=== PATIENT | male | born 1940 | race Caucasian/White ===

== ENCOUNTER 2019-11-25 14:09 | Emergency (ER) | payer MEDICARE, SELFPAY ==
[2019-11-25 14:11] VITALS: BP 183/112; PULSE 74; RESP 18; TEMP 36.8; O2SAT 98; BMI 25.6
--- NOTE | 2019-11-25 14:13 | DI.CT.S_ITS ---
PROCEDURE: CT HEAD/BRAIN WO CON INDICATIONS: mechanical fall, swelling to RT forehead, on Eloquis TECHNIQUE: Noncontrast 4.5 mm thick angled axial sections acquired from the foramen magnum to the vertex, with coronal and sagittal reformats. For radiation dose reduction, the following was used: automated exposure control, adjustment of mA and/or kV according to patient size. COMPARISON: [facility], CT, CT CERVICAL SPINE WO CON, 11/25/2019, 14:17. FINDINGS: Image quality: Excellent. CSF spaces: Basal cisterns are patent. No extra-axial fluid collections. The ventricles are symmetric in size and shape. Brain: No intracranial bleeds or masses. There is cerebral volume loss for age, with resultant ventricular and sulcal prominence. There are periventricular and deep white matter chronic small vessel ischemic changes. There is intracranial internal carotid artery atherosclerosis. Skull and face: There is a scalp hematoma seen involving the right forehead, as on series 2 image 13. No underlying calvarial fracture can be seen. Calvarium and visualized facial bones appear intact, without suspicious lesions. Postoperative change of both globes can be seen. Sinuses: Visualized sinuses and mastoids are clear. IMPRESSION: Right forehead scalp hematoma. No underlying calvarial fracture is seen. No acute intracranial hemorrhage is seen. No acute intracranial process is seen. Dictated by: Aric Edmonds M.D. on 11/25/2019 at 13:40 Approved by: Aric Edmonds M.D. on 11/25/2019 at 13:42
--- NOTE | 2019-11-25 14:13 | DI.CT.S_ITS ---
PROCEDURE: CT CERVICAL SPINE WO CON INDICATIONS: s/p fall on Eliquis TECHNIQUE: Noncontrast 3 mm thick sections acquired from the skull base to the T4 level. Sagittal and coronal reformats were then constructed. For radiation dose reduction, the following was used: automated exposure control, adjustment of mA and/or kV according to patient size. COMPARISON: [facility], CT, CT HEAD/BRAIN WO CON, 11/25/2019, 14:17. FINDINGS: Image quality: Excellent. Bones: No fractures or dislocations. Visualized superior ribs are intact. Prominent degenerative changes are seen, with moderate to severe disc space narrowing at C4-C5, C5-C6, and C6-C7, and C7-T1. Posteriorly directed endplate osteophytes are seen, which are most prominent at C4-C4, yet also seen at C6-C7. Mild retrolisthesis is seen at C4-C5. Bridging anterior osteophytes are seen C4 through T1. Soft tissues: Prevertebral soft tissues are normal in thickness. No paravertebral hematomas. No apical pneumothoraces. Atherosclerotic calcification is noted. IMPRESSION: Negative for acute fracture. Prominent degenerative changes are seen. Dictated by: Aric Edmonds M.D. on 11/25/2019 at 13:42 Approved by: Aric Edmonds M.D. on 11/25/2019 at 13:43
--- NOTE | 2019-11-25 14:17 | DI.RAD.S_ITS ---
PROCEDURE: XR HAND RT MIN 3V INDICATIONS: right radial aspect hand pain TECHNIQUE: 3 views of the hand(s) acquired. COMPARISON: None. FINDINGS: Bones: No fracture. Diffuse osteopenia. Widespread osteoarthritis, with severe joint space narrowing. There is going appearance to the PIP joint of the ring finger and possibly the DIP joint of the index finger suggestive of erosive osteoarthritis. Severe 3rd MCP joint degeneration, with subluxed appearance. There is also diffuse carpal and 1st CMC osteoarthritis Scattered vascular calcifications. IMPRESSION: Severe diffuse right hand joint degeneration, with appearance that raises the possibility of erosive osteoarthritis as discussed above. Dictated by: Jaylen Strong M.D. on 11/25/2019 at 14:46 Approved by: Jaylen Strong M.D. on 11/25/2019 at 14:48
[2019-11-25 14:22] LABS: Add Manual Diff / Slide Review NO; Basophils Absolute Auto 100 /uL (0-100); Basophils Percent Auto 1.1 % (0-2); Eosinophils Absolute Auto 100 /uL (0-450); Eosinophils Percent Auto 1.5 % (2-4); Hematocrit 37.3 % (41-53); Hemoglobin 12.2 g/dL (13.5-17.5); Lymphocytes Absolute Auto 1500 /uL (1100-4500); Lymphocytes Percent Auto 23.8 % (25-40); Mean Corpuscular HGB Conc 32.8 % (30-36); Mean Corpuscular Hemoglobin 27.5 PG (26-34); Mean Corpuscular Volume 83.8 fL (80-100); Monocytes Absolute Auto 800 /uL (0-900); Monocytes Percent Auto 12.6 % (3-14); Neutrophils Absolute Auto 3900 /uL (1500-7000); Platelet Count 234 X10^3/uL (150-400); Red Blood Cell Count 4.45 X10^6/uL (4.5-5.9); Red Cell Distribution Width 16.2 % (11.6-14.8); White Blood Cell Count 6.5 X10^3/uL (4.5-11.0)
[2019-11-25 14:29] LABS: Prothrombin Time 11.6 SECONDS (10.1-12.7)
[2019-11-25 14:32] LABS: PTT Partial Thromboplastin Tim 30 SECONDS (26.4-36.2)
[2019-11-25 14:33] VITALS: BP 159/74; PULSE 70; RESP 15; O2SAT 97
[2019-11-25 14:36] LABS: Alanine Aminotransferase 32 IU/L (<50); Albumin 3.7 g/dL (3.5-5.0); Albumin Globulin Ratio 1.3 (1.0-2.8); Alkaline Phosphatase 88 U/L (38-126); Aspartate Aminotransferase 61 IU/L (17-59); BUN Creatinine Ratio 6.7 (6-22); Bilirubin Total 0.9 mg/dL (0.2-1.3); Blood Urea Nitrogen 5 mg/dL (9-20); Calcium 9.1 mg/dL (8.4-10.2); Carbon Dioxide 25 mmol/L (22-32); Chloride 104 mmol/L (98-107); Estimated Glomerular Filt Rate > 60.0 mL/min (>60); Globulin 2.9 g/dL (1.7-4.1); Glucose 111 mg/dL (80-110); HEMOLYSIS < 15 (0-50); Potassium 4.1 mmol/L (3.4-5.1); Sodium 135 mmol/L (137-145); Total Protein 6.6 g/dL (6.3-8.2)
[2019-11-25 15:01] VITALS: BP 193/87; PULSE 71; RESP 26; O2SAT 98
--- NOTE | 2019-11-25 15:13 | ED.HEATRA ---
HPI - Head Injury <ARPIT Vargas - Last Filed: 11/25/19 22:40> General Chief complaint: Trauma Stated complaint: GLF, head injury w/ Eliquis Source: patient and EMS Mode of arrival: EMS Limitations: no limitations History of Present Illness HPI Narrative: This is a 79-year-old male, former smoker, who has history of AFib, macular degeneration, hypertension presents to ED with [facility] after he had tripped concrete sidewalk and fall on right-sided forehead and bilateral hands on a concrete. Patient takes Eliquis for AFib. Patient denies losing consciousness, vomiting, severe headache, vision changes. Spouse reports patient has his normal behavior since the injury. Patient reports right hand pain in ulna aspect with bilateral hands skin injuries. Patient is unsure of last tetanus immunization. Patient denies bilateral wrist, elbow, shoulder pain. He denies hip pain, knee pain, foot or ankle pain. Review of Systems <ARPIT Vargas - Last Filed: 11/25/19 22:40> Review of Systems Narrative: General: Denies fever, chills, fatigue, malaise, sweats. HEENT: HPI Respiratory: Denies dyspnea, cough, wheezing, hemoptysis, sputum. Cardiovascular: Denies chest pain, palpitations, orthopnea, edema. Gastrointestinal: Denies nausea, vomiting, abdominal pain, diarrhea, constipation, melena. : Denies dysuria, frequency, incontinence, hematuria, urinary retention. Musculoskeletal: See HPI Skin: See HPI Neurologic: Denies weakness, headache, numbness, change in speech, confusion, seizures, incoordination. Psychiatric: No concerning psychosocial issues. 12-point review of systems is negative except for those stated above. Patient History <ARPIT Vargas - Last Filed: 11/25/19 22:40> Surgical History History of partial gastrectomy (Acute) Social History Smoking Status: Former smoker Smoking Status: Former smoker alcohol intake frequency: 0-2 drinks per day Substance Use Type: does not use Exam <ARPIT Vargas Last Filed: 11/25/19 22:40> Narrative Exam Narrative: GEN: Alert, oriented x 3, well appearing and nourished, and in no acute distress. Head: Small hematoma on right-sided forehead with ecchymosis. EYES: Pupils are equal, round, and reactive to light and accommodation. Extraocular muscles are intact bilaterally. There is no subconjunctival hemorrhage, exudate and sclera non-icteric. ENT: Bilateral auditory canals and tympanic membranes clear without drainage or hematoma panel. Difficulty hearing and has bilateral hearing aids. Nose without bleeding, purulent discharge or deviation. Facial sinuses nontender to palpate. Mucous membrane moist, no mucosal lesion. Throat without erythema, tonsillar hypertrophy or exudate. Uvula in midline, airway patent. Neck: Trachea in midline. No JVD, non-tender without lymphadenopathy. No masses or thyroid megaly. Supple, no mid cervical tenderness to palpate and no meningeal signs. CARDIAC: Normal regular rate and rhythm without murmurs, gallops, or rubs. No chest wall tenderness. No peripheral edema, cyanosis or pallor. Capillary refill is less than 2 seconds. RESPIRATORY: Lungs are clear to auscultate bilaterally. No cough, wheezes, rales, or rhonchi. No stridor, respiratory distress, increase work of breathing, or accessary muscle used. ABD: Abdomen soft, nontender and non-distended. No guarding or rebound tenderness to palpate. Bowel sounds are normal in all 4 quadrants. There is no palpable masses or organomegaly. Two well-healed or surgical incision in right lower abdomen. SKIN: Left index finger tip with abrasion. About 5-6 cm skin tear in right finger web between thumb and index finger. Superficial abrasion on right distal phalange. BACK: Nontender without deformity or crepitance. No flank tenderness. NEUROLOGICAL: Alert and oriented to place, time and person. Sensation and motor function intact bilaterally. No facial droops, dysphasia. PSYCHIATRIC: Good judgement and reason, without hallucinations, abnormal affect or abnormal behaviors during the examination. Patient is not suicidal. Initial Vital Signs Initial Vital Signs: Vital Signs Temperature 98.2 F 11/25/19 14:11 Pulse Rate 74 11/25/19 14:11 Respiratory Rate 18 11/25/19 14:11 Blood Pressure 183/112 H 11/25/19 14:11 Pulse Oximetry 98 08/03/20 14:11 Extrem Right upper extremity: shoulder/upper arm Details: normal to inspection; no tenderness, elbow/forearm Details: normal to inspection; no tenderness, wrist Details: normal to inspection; no tenderness and no swelling and hand Details: neuromotor exam normal, neurosensory exam normal, tendon exam normal, tenderness (ulnar apsect of metacapal), vascular exam Details: radial pulse present and normal capillary refill, abrasion (Distal phalange of the little finger), laceration (Skin tear in between thumb and index finger) and ecchymosis (Dorsal aspect); no crepitus Left upper extremity: shoulder/upper arm Details: inspection abnormal; no swelling, elbow/forearm Details: normal to inspection; no tenderness, wrist Details: normal to inspection; no tenderness and hand Details: abrasion Location: of the 2nd digit Location: at the distal phalanx Right lower extremity: hip/thigh Details: no tenderness and no swelling and knee Details: no tenderness and no swelling Left lower extremity: hip/thigh Details: no tenderness and no swelling and knee Details: no tenderness and no swelling <Charlie Stephens MD - Last Filed: 11/26/19 08:15> Initial Vital Signs Initial Vital Signs: Vital Signs Temperature 98.2 F 11/25/19 14:11 Pulse Rate 74 11/25/19 14:11 Respiratory Rate 18 11/25/19 14:11 Blood Pressure 183/112 H 11/25/19 14:11 Pulse Oximetry 98 11/25/19 14:11 Scores <ARPIT Vargas - Last Filed: 11/25/19 22:40> GCS Penryn coma scale eye opening: Spontaneous Penryn coma scale verbal response: Orientated Pen[place] coma scale motor response: Obey commands Penryn coma scale total score: 15 Course <ARPIT Vargas - Last Filed: 11/25/19 22:40> Orders Ordered: Discontinued Medications Bacitracin (Bacitracin) 2 applic TOP NOW ONE Stop: 11/25/19 15:07 Last Admin: 11/25/19 15:39 Dose: 2 applic Documented by: ZZOUTIS Diphtheria/Tetanus/Acell Pertussis (Adacel) 0.5 ml IM .ONCE ONE Stop: 11/25/19 15:07 Last Admin: 11/25/19 15:37 Dose: 0.5 ml Documented by: IRINA Vital Signs Vital signs: Vital Signs - 8 hr 11/25/19 14:33 11/25/19 15:01 11/25/19 15:30 Pulse Rate 70 71 71 Respiratory Rate 15 26 H 23 Blood Pressure 159/74 H 193/87 H 156/74 H Pulse Oximetry 97 98 97 <Charlie Stephens MD - Last Filed: 11/26/19 08:15> Orders Ordered: Discontinued Medications Bacitracin (Bacitracin) 2 applic TOP NOW ONE Stop: 11/25/19 15:07 Last Admin: 11/25/19 15:39 Dose: 2 applic Documented by: IRINA Diphtheria/Tetanus/Acell Pertussis (Adacel) 0.5 ml IM .ONCE ONE Stop: 11/25/19 15:07 Last Admin: 11/25/19 15:37 Dose: 0.5 ml Documented by: IRINA Vital Signs Vital signs: Vital Signs - 8 hr 11/25/19 14:33 11/25/19 15:01 11/25/19 15:30 Pulse Rate 70 71 71 Respiratory Rate 15 26 H 23 Blood Pressure 159/74 H 193/87 H 156/74 H Pulse Oximetry 97 98 97 MDM - Head Injury <ARPIT Vargas - Last Filed: 11/25/19 22:40> Differential Diagnosis Differential diagnosis: Likely concussion without loss of consciousness, closed head injury, subdural hematoma and other (Hand fracture, skin tear/abrasions) Medical Records Attestation: I reviewed the patient's medical records. Lab Data Attestation: I reviewed the patient's lab results. Result diagrams: 11/25/19 14:10 11/25/19 14:10 Labs: Lab Results 11/25/19 11/25/19 11/25/19 Range/Units 14:10 14:10 14:10 WBC 6.5 (4.5-11.0) X10^3/uL RBC 4.45 L (4.5-5.9) X10^6/uL Hgb 12.2 L (13.5-17.5) g/dL Hct 37.3 L (41-53) % MCV 83.8 (80-100) fL MCH 27.5 (26-34) PG MCHC 32.8 (30-36) % RDW 16.2 H (11.6-14.8) % Plt Count 234 (150-400) X10^3/uL Neut % (Auto) 61.0 (50-75) % Lymph % (Auto) 23.8 L (25-40) % Garden % (Auto) 12.6 (3-14) % Eos % (Auto) 1.5 L (2-4) % Baso % (Auto) 1.1 (0-2) % Neut # (Auto) 3900 (1842-9569) /uL Lymph # (Auto) 1500 (5606-8133) /uL Garden # (Auto) 800 (0-900) /uL Eos # (Auto) 100 (0-450) /uL Baso # (Auto) 100 (0-100) /uL PT 11.6 (10.1-12.7) SECONDS INR 1.0 (0.9-1.3) APTT 30 (26.4-36.2) SECONDS Sodium 135 L (137-145) mmol/L Potassium 4.1 (3.4-5.1) mmol/L Chloride 104 (98-107) mmol/L Carbon Dioxide 25 (22-32) mmol/L BUN 5 L (9-20) mg/dL Creatinine 0.75 (0.66-1.25) mg/dL Estimated GFR > 60.0 (>60) mL/min BUN/Creatinine Ratio 6.7 (6-22) Glucose 111 H (80-110) mg/dL Calcium 9.1 (8.4-10.2) mg/dL Total Bilirubin 0.9 (0.2-1.3) mg/dL AST 61 H (17-59) IU/L ALT 32 (<50) IU/L Alkaline Phosphatase 88 (38-126) U/L Total Protein 6.6 (6.3-8.2) g/dL Albumin 3.7 (3.5-5.0) g/dL Globulin 2.9 (1.7-4.1) g/dL Albumin/Globulin Ratio 1.3 (1.0-2.8) Imaging Data CT-Head: Radiologist's Impression: [address] [address] [address] Scan Report Signed Patient: Yahir Hilliard#: [id number] : 8Acct:[id number] Age/Sex: 79 / MDate of Service: 11/25/19 Loc: ED Accession Number: [id number] Procedure: CT head/brain wo con Ordering Provider: Igor Nair PROCEDURE: CT HEAD/BRAIN WO CON INDICATIONS: mechanical fall, swelling to RT forehead, on Eloquis TECHNIQUE: Noncontrast 4.5 mm thick angled axial sections acquired from the foramen magnum to the vertex, with coronal and sagittal reformats. For radiation dose reduction, the following was used: automated exposure control, adjustment of mA and/or kV according to patient size. COMPARISON: [facility], CT, CT CERVICAL SPINE WO CON, 11/25/2019, 14:17. FINDINGS: Image quality: Excellent. CSF spaces: Basal cisterns are patent. No extra-axial fluid collections. The ventricles are symmetric in size and shape. Brain: No intracranial bleeds or masses. There is cerebral volume loss for age, with resultant ventricular and sulcal prominence. There are periventricular and deep white matter chronic small vessel ischemic changes. There is intracranial internal carotid artery atherosclerosis. Skull and face: There is a scalp hematoma seen involving the right forehead, as on series 2 image 13. No underlying calvarial fracture can be seen. Calvarium and visualized facial bones appear intact, without suspicious lesions. Postoperative change of both globes can be seen. Sinuses: Visualized sinuses and mastoids are clear. IMPRESSION: Right forehead scalp hematoma. No underlying calvarial fracture is seen. No acute intracranial hemorrhage is seen. No acute intracranial process is seen. Dictated by: Aric Edmonds M.D. on 11/25/2019 at 13:40 Approved by: Aric Edmonds M.D. on 11/25/2019 at 13:42 CT- C spine: Radiologist's Impression: [place] [address] CT Scan Report Signed Patient: Snow Hilliard#: [id number] : 8Acct:[id number] Age/Sex: 79 / MDate of Service: 11/25/19 Loc: ED Accession Number: [id number] Procedure: CT cervical spine wo con Ordering Provider: Igor Nair PROCEDURE: CT CERVICAL SPINE WO CON INDICATIONS: s/p fall on Eliquis TECHNIQUE: Noncontrast 3 mm thick sections acquired from the skull base to the T4 level. Sagittal and coronal reformats were then constructed. For radiation dose reduction, the following was used: automated exposure control, adjustment of mA and/or kV according to patient size. COMPARISON: [facility], CT, CT HEAD/BRAIN WO CON, 11/25/2019, 14:17. FINDINGS: Image quality: Excellent. Bones: No fractures or dislocations. Visualized superior ribs are intact. Prominent degenerative changes are seen, with moderate to severe disc space narrowing at C4-C5, C5-C6, and C6-C7, and C7-T1. Posteriorly directed endplate osteophytes are seen, which are most prominent at C4-C4, yet also seen at C6-C7. Mild retrolisthesis is seen at C4-C5. Bridging anterior osteophytes are seen C4 through T1. Soft tissues: Prevertebral soft tissues are normal in thickness. No paravertebral hematomas. No apical pneumothoraces. Atherosclerotic calcification is noted. IMPRESSION: Negative for acute fracture. Prominent degenerative changes are seen. Dictated by: Aric Edmonds M.D. on 11/25/2019 at 13:42 Approved by: Aric Edmonds M.D. on 11/25/2019 at 13:43 XR-Hand RT: Radiologist's Impression: [address] [address] XRay Report Signed Patient: Snow Hilliard#: [id number] : 1940cct:[id number] Age/Sex: 79 / MDate of Service: 11/25/19 Loc: ED Accession Number: [id number] Procedure: XR hand RT min 3V Ordering Provider: Igor Nair [facility] PROCEDURE: XR HAND RT MIN 3V INDICATIONS: right radial aspect hand pain TECHNIQUE: 3 views of the hand(s) acquired. COMPARISON: None. FINDINGS: Bones: No fracture. Diffuse osteopenia. Widespread osteoarthritis, with severe joint space narrowing. There is going appearance to the PIP joint of the ring finger and possibly the DIP joint of the index finger suggestive of erosive osteoarthritis. Severe 3rd MCP joint degeneration, with subluxed appearance. There is also diffuse carpal and 1st CMC osteoarthritis Scattered vascular calcifications. IMPRESSION: Severe diffuse right hand joint degeneration, with appearance that raises the possibility of erosive osteoarthritis as discussed above. Dictated by: Jaylen Strong M.D. on 11/25/2019 at 14:46 Approved by: Jaylen Strong M.D. on 11/25/2019 at 14:48 ECG Data Attestation: I personally reviewed and interpreted this ECG as follows: Prior ECG tracings: not available for review Interpretation: Sinus rhythm with first-degree AV block rate at 74 RI interval 256, QRS duration 84, QT/QTC 390/[address] changes MDM Narrative Medical decision making narrative: Modified trauma has activated since the patient is currently on Eliquis for history of AFib and had a mechanical fall. This is a 79-year-old gentleman who is visiting his daughter from [place] in [facility] with his had accidental mechanical fall after tripped on a sidewalk and landed in his hands and forehead. Patient denies losing consciousness, vision change, headache, weakness takes extremities, chest pain, or breathing difficulty prior to the fall. Head and neck CT scan result without acute findings. Patient has a few skin abrasions and skin tear in bilateral upper extremities. Patient had ulna aspect of right wrist pain and x-ray test does not show acute findings. Patient has mild anemia Of H&H of 12.2/37.3. No leukocytosis. Normal platelet counts with coag test result. Unremarkable chemistry test except mild hyponatremia of 135. Patient offered Tylenol which he declined. Tetanus immunization has been updated today with Tdap. Wound care has been done by nursing staff. Patient was able to ambulate in stable gait before discharged to home. Return precautions were discussed with patient and spouse and they verbalized understanding and agreement with the treatment plan. <Charlie Stephens MD - Last Filed: 11/26/19 08:15> Lab Data Labs: Lab Results 11/25/19 11/25/19 11/25/19 Range/Units 14:10 14:10 14:10 WBC 6.5 (4.5-11.0) X10^3/uL RBC 4.45 L (4.5-5.9) X10^6/uL Hgb 12.2 L (13.5-17.5) g/dL Hct 37.3 L (41-53) % MCV 83.8 (80-100) fL MCH 27.5 (26-34) PG MCHC 32.8 (30-36) % RDW 16.2 H (11.6-14.8) % Plt Count 234 (150-400) X10^3/uL Neut % (Auto) 61.0 (50-75) % Lymph % (Auto) 23.8 L (25-40) % Garden % (Auto) 12.6 (3-14) % Eos % (Auto) 1.5 L (2-4) % Baso % (Auto) 1.1 (0-2) % Neut # (Auto) 3900 (4107-3261) /uL Lymph # (Auto) 1500 (4056-8607) /uL Garden # (Auto) 800 (0-900) /uL Eos # (Auto) 100 (0-450) /uL Baso # (Auto) 100 (0-100) /uL PT 11.6 (10.1-12.7) SECONDS INR 1.0 (0.9-1.3) APTT 30 (26.4-36.2) SECONDS Sodium 135 L (137-145) mmol/L Potassium 4.1 (3.4-5.1) mmol/L Chloride 104 (98-107) mmol/L Carbon Dioxide 25 (22-32) mmol/L BUN 5 L (9-20) mg/dL Creatinine 0.75 (0.66-1.25) mg/dL Estimated GFR > 60.0 (>60) mL/min BUN/Creatinine Ratio 6.7 (6-22) Glucose 111 H (80-110) mg/dL Calcium 9.1 (8.4-10.2) mg/dL Total Bilirubin 0.9 (0.2-1.3) mg/dL AST 61 H (17-59) IU/L ALT 32 (<50) IU/L Alkaline Phosphatase 88 (38-126) U/L Total Protein 6.6 (6.3-8.2) g/dL Albumin 3.7 (3.5-5.0) g/dL Globulin 2.9 (1.7-4.1) g/dL Albumin/Globulin Ratio 1.3 (1.0-2.8) Discharge Plan Departure Patient Disposition: Home Clinical Impression: Abrasion Fall Qualifiers: Encounter type: initial encounter Qualified Code(s): W19.XXXA - Unspecified fall, initial encounter CHI (closed head injury) Qualifiers: Encounter type: initial encounter Qualified Code(s): S09.90XA - Unspecified injury of head, initial encounter Discharge Date/Time: 11/25/19 15:49 Instructions: How to Prevent Falls, DI for Closed Head Injury, DI for Abrasion Activity Restrictions/Additional Instructions: You have been diagnosed with [fall, closed head injury, several skin tear and abrasions in upper extremities. Tdap has been updated today. CT for head and C-spine was negative for acute findings. No fractures in right hand. Lab tests were unremarkable including CBC, chemistry test, and coag test.]. What to do: *Take your medications as directed. You can take [id number] Tylenol as needed for discomfort. You can use cool pack on affected site for pain for next couple of days. Please monitor for infection in skin wounds. *Follow up with your primary care provider in 2-3 days, call for an appointment. Let them know you were seen in the ED and that we asked you to be seen in follow up. *Return to ED if you have any new, worsening, or concerning symptoms, such as [chest pain, breathing difficulty, severe headache, changes in behaviors, vomitings, seizures, increasing redness/warmth/swelling or purulent discharge, fever or any acute concerns]. Have a wonderful time in [place] with her daughter.
[2019-11-25 15:30] VITALS: BP 156/74; PULSE 71; RESP 23; O2SAT 97
[2019-11-25] MEDS: TET,DIPH,PERTUSS(ACELL),VAC/PF 0.5 ML SYRINGE IM (15:37)
[2019-11-25] MEDS: BACITRACIN OINT 0.9 GM PCKT 2 APPLIC TOP (15:39)
== END 2019-11-25 15:49 | disposition home or self-care (01) ==
PROVIDERS: Emergency Provider Nurse Practitioner Family
DX: S09.90XA Unspecified injury of head, initial encounter (principal); I48.91 Unspecified atrial fibrillation; Z79.01 Long term (current) use of anticoagulants; S60.411A Abrasion of left index finger, initial encounter; S60.418A Abrasion of other finger, initial encounter; S60.311A Abrasion of right thumb, initial encounter; W19.XXXA Unspecified fall, initial encounter; Z23 Encounter for immunization
CPT/HCPCS: 70450; 72125; 73130; 80053; 85025; 85610; 85730; 90471; 93005; 99283; 99284; 90715